=== PATIENT | male | born 1980 | race Caucasian/White ===

== ENCOUNTER 2019-01-10 09:51 | Emergency (ER) | payer SELFPAY ==
[2019-01-10 10:36] LABS: ABSOLUTE EOSINOPHILS # (AUTO) 0.1 10^3/uL (0.0-0.6); ABSOLUTE LYMPHOCYTES (AUTO) 1.8 10^3/uL (0.5-4.7); ABSOLUTE MONOCYTES (AUTO) 0.6 10^3/uL (0.1-1.4); ABSOLUTE NEUT (AUTO) 6.4 10^3/uL (1.7-8.2); BASOPHILS % (AUTO) 0.5 % (0-2); EOSINOPHILS % (AUTO) 1.4 % (0-6); HEMATOCRIT 45.6 % (37.9-51.0); HEMOGLOBIN 15.7 g/dL (13.5-17.0); LYMPHOCYTES % (AUTO) 19.9 % (13-45); MEAN CORPUSCULAR HEMOGLOBIN 30.6 pg (27.0-33.4); MEAN CORPUSCULAR HGB CONC 34.5 g/dL (32.0-36.0); MEAN CORPUSCULAR VOLUME 89 fl (80-97); MONOCYTES % (AUTO) 6.8 % (3-13); PLATELET COUNT 364 10^3/uL (150-450); RED BLOOD COUNT 5.14 10^6/uL (4.35-5.55); RED CELL DISTRIBUTION WIDTH 12.7 % (11.5-14.0); SEGMENTED NEUTROPHILS % (AUTO) 71.4 % (42-78); TOTAL CELLS COUNTED % (AUTO) 100 %; WHITE BLOOD COUNT 8.9 10^3/uL (4.0-10.5)
[2019-01-10 10:52] LABS: APPEARANCE,URINE CLEAR; BILIRUBIN,URINE NEGATIVE (NEGATIVE); COLOR,URINE YELLOW; GLUCOSE, URINE NEGATIVE (NEGATIVE); KETONES,URINE NEGATIVE (NEGATIVE); LEUKOCYTE ESTERASE,URINE NEGATIVE (NEGATIVE); NITRITE,URINE NEGATIVE (NEGATIVE); PROTEIN,URINE NEGATIVE (NEGATIVE); URINE SPECIFIC GRAVITY 1.019; UROBILINOGEN,URINE NEGATIVE mg/dL (<2.0)
[2019-01-10 11:03] LABS: ALANINE AMINOTRANSFERASE 63 U/L (21-72); ALKALINE PHOSPHATASE 82 U/L (38-126); ANION GAP 9 (5-19); ASPARTATE AMINO TRANSFERASE 26 U/L (17-59); BILIRUBIN,DIRECT 0.2 mg/dL (0.0-0.4); BILIRUBIN,TOTAL 0.2 mg/dL (0.2-1.3); BLOOD UREA NITROGEN 17 mg/dL (7-20); CALCIUM 9.3 mg/dL (8.4-10.2); CARBON DIOXIDE 30 mmol/L (22-30); CHLORIDE 101 mmol/L (98-107); GLUCOSE 92 mg/dL (75-110); LIPASE 89.6 U/L (23-300); POTASSIUM 4.2 mmol/L (3.6-5.0); SODIUM 139.9 mmol/L (137-145); TOTAL PROTEIN 7.6 g/dL (6.3-8.2)
--- NOTE | 2019-01-10 11:04 | ER Document Report ---
ED GI/ - General Chief Complaint: Abdominal Pain Stated Complaint: ABDOMINAL PAIN Time Seen by Provider: 01/10/19 10:51 Primary Care Provider: REYNA MCCAULEY MD [NO LOCAL MD] - Follow up in 1 week Notes: Patient is here complaining of pain in the mid suprapubic region of the lower abdomen and pubic area which is been present off and on for the past 6 months. He is also recently had an infection involving his scrotum swelling, the size of a grapefruit, and painful and went to [facility] 1 week ago and was treated with doxycycline and Keflex. A small area of draining opened the next day or so on the left side of his scrotum. He says the swelling of the scrotum has gone down and it is less painful but it is still a hard area left there. He still has some of the antibiotics remaining. Patient denies any discomfort urinating. Has not seen any blood or pus or discharge from the penis. Has not noted any fever. No nausea or vomiting or diarrhea. Patient says he has a kidney stone that was 13 mm found when examined in April of last year. He never passed a stone. Smoker TRAVEL OUTSIDE OF THE [place] IN LAST 30 DAYS: No - Related Data Allergies/Adverse Reactions: No Known Allergies Allergy (Unverified 01/10/19 09:52) Past Medical History - Social History Smoking Status: Current Every Day Smoker Frequency of alcohol use: Occasional Family History: Reviewed & Not Pertinent Patient has suicidal ideation: No Patient has homicidal ideation: No Renal/ Medical History: Reports: Hx Kidney Stones Review of Systems - Review of Systems Notes: REVIEW OF SYSTEMS: CONSTITUTIONAL : Denies fever. EENT: Denies eye, ear, nose or mouth or throat pain or other symptoms. CARDIOVASCULAR: Denies chest pain. RESPIRATORY: Denies cough, chest congestion, or shortness of breath. GASTROINTESTINAL: See HPI. Genitourinary: See HPI. MUSCULOSKELETAL: Denies back or neck pain. Denies joint pain or swelling. SKIN: Denies rash or skin lesions. NEUROLOGICAL: Denies LOC or altered mental status. Denies headache. Denies sensory loss or motor deficits. ALL OTHER SYSTEMS REVIEWED AND NEGATIVE. Physical Exam - Vital signs Vitals: Temp Pulse Resp BP Pulse Ox 98.0 F 97 18 142/85 H 100 01/10/19 10:04 01/10/19 10:04 01/10/19 10:04 01/10/19 10:04 01/10/19 10:04 Interpretation: Normal. No: Febrile Notes: PHYSICAL EXAMINATION: GENERAL: Well-appearing, in no acute distress. HEAD: Atraumatic, normocephalic. EYES: Pupils equal round and reactive to light, extraocular movements intact. ENT: oropharynx clear without exudates. Moist mucous membranes. NECK: Normal range of motion, supple. LUNGS: Breath sounds clear and equal bilaterally. HEART: Regular rate and rhythm without murmurs. ABDOMEN: Soft, nontender. No guarding or rebound. No masses. Urinary: Patient's right testicle is normal size and is not tender or swollen. The left testicle is difficult to delineate as it has thickened swollen skin fr om the scrotum overlying the entire testicle. It makes it appears if the testicle itself is significantly enlarged, but I do not think it is and I do not since significant tenderness of the left testicle under this thickened skin. The testicle is firm, but no fluid detected by palpation, no fluctuance. On the lateral aspect of the proximal left scrotum is a round denuded lesion about 1 cm which has some clear minimal fluid oozing from it. No urethral discharge or bleeding. BACK: No tenderness throughout entire back. EXTREMITIES: Normal range of motion without pain. NEUROLOGICAL: Normal speech, normal gait. Normal sensory, motor, and reflex exams. Awake, alert, and oriented x3. Cranial nerves normal. PSYCH: Normal mood, normal affect. SKIN: Warm, dry, no rashes. Course - Vital Signs Vital signs: Temp Pulse Resp BP Pulse Ox 98.1 F 88 18 143/99 H 100 01/10/19 14:55 01/10/19 14:55 01/10/19 10:04 01/10/19 14:55 01/10/19 14:55 - Laboratory Result Diagrams: 01/10/19 10:15 01/10/19 10:15 - Diagnostic Test Radiology reviewed: Image reviewed, Reports reviewed - Ultrasound shows significant thickening of the left scrotal wall and the epididymis is enlarged throughout from the head to the tail. The testicle itself has good blood flow and does not appear to be in affected by this condition. Discharge - Discharge Clinical Impression: Epididymitis, left Condition: Stable Disposition: HOME, SELF-CARE Additional Instructions: Epididymitis You have epididymitis. This is an inflammation of the organ just behind the testicle, called the epididymis. It can be due to infection in the bladder or prostate. Many cases are simply inflammation and are not caused by germs. Epididymitis often develops after heavy lifting or vigorous exercise. Antibiotics and antiinflammatory medication are often prescribed. Elevation of the scrotum with a jock-strap or tight briefs will help with the pain. Pain medication may be required. Either cold packs or warm sitz baths can help with the pain -- ask your doctor which he recommends for your case. It may take 10 to 14 days until the pain is gone. Avoid heavy lifting during this time. Call the doctor or go to the hospital if you develop fever, increasing pain, or severe swelling, or if you fail to improve as expected. Doxycycline Doxycycline (Vibramycin, Doryx) is an antibiotic of the tetracycline family. This type of drug is useful for infections of the respiratory tract and genital tract, and is sometimes used for intestinal infections. Unlike most tetracyclines, doxycycline can be taken with food. It is longer acting, and (usually) less prone to side effects than regular tetracycline. Tetracycline antibiotics can stain immature teeth and SHOULD NOT BE TAKEN BY CHILDREN, NURSING MOTHERS, OR WOMEN. Tetracyclines can make you more prone to sunburn. Abdominal cramping, nausea, and diarrhea are occasional side effects. Women may experience vaginal yeast infections. Call the doctor at once if you develop hives, itching, shortness of breath, or lightheadedness. FOLLOW-UP CARE: If you have been referred to a physician for follow-up care, call the physicians office for an appointment as you were instructed or within the next two days. If you experience worsening or a significant change in your symptoms, notify the physician immediately or return to the Emergency Department at any time for re-evaluation. You need to be followed up by a urologist. The only urologist working in [place] are based out of [place], but they do have a local office here in [place]. I am providing you with this contact information elsewhere in these discharge instructions. Prescriptions: Doxycycline Hyclate 100 mg PO BID #20 capsule Referrals: REYNA MCCAULEY MD [NO LOCAL MD] - Follow up in 1 week
--- NOTE | 2019-01-10 14:16 | RADIOLOGY REPORT (SQ) ---
EXAM DESCRIPTION: U/S SCROTUM W/DOPPLER COMPLETED DATE/TIME: 01/10/2019 1:57 pm REASON FOR STUDY: Swelling left test/scrotum x 10 days, post ABX COMPARISON: None. TECHNIQUE: Static and realtime gillespie scale imaging of the scrotum and testes. Selected color Doppler and spectral images recorded to document blood flow. LIMITATIONS: None. FINDINGS: RIGHT: TESTICLE: The right testicle measures 3.9 x 2.6 x 2.0 cm. Normal size. Normal echotexture. Normal blood flow. No mass. EPIDIDYMIS: The head of the epididymis measures 1.2 x 1.0 x 1.1 cm. Normal. The tail of the epididymis appears thickened and edematous. HYDROCELE OR VARICOCELE: No. HERNIA OR EXTRA-TESTICULAR MASS: No. OTHER: See discussion below. LEFT: TESTICLE: The left testicle measures 3.5 x 2.8 x 2.2 cm. Normal size. Normal echotexture. Normal b lood flow. No mass. EPIDIDYMIS: The head of the epididymis measures 0.8 x 0.9 x 0.8 cm. The head, body and tail of the epididymis appeared to be edematous. HYDROCELE OR VARICOCELE: No. HERNIA OR EXTRA-TESTICULAR MASS: No. OTHER: The scrotal wall is thickened and measures 1.1 cm. IMPRESSION: 1. There is a thickened appearance to the scrotal wall. The entire epididymis on the l eft and the tail of the epididymis on the right have an edematous appearance. These findings may be on the basis of inflammatory/ infectious changes. Correlation suggested. 2. The testicles are sonographically unremarkable in appearance. TECHNICAL DOCUMENTATION: JOB ID: [id number]- All Rights Reserved Reading location - IP/workstation name: [email or web address]
[2019-01-10 15:00] VITALS: BP 143/99
== END 2019-01-10 15:01 | disposition home or self-care (01) ==
LOC: ER 09:51
DX: N45.1 Epididymitis (principal); R10.9 Unspecified abdominal pain; R10.30 Lower abdominal pain, unspecified; R10.2 Pelvic and perineal pain; F17.200 Nicotine dependence, unspecified, uncomplicated
CPT/HCPCS: 36415; 76870; 80053; 81001; 83690; 85025; 93976; 99284